=== PATIENT | male | born 1935 | race Caucasian/White ===

== ENCOUNTER 2018-02-19 09:55 | Emergency (ER) | payer MEDICARE ==
[~2018-02-19] VITALS: Ht 193 cm; Wt 82.0 kg
[~2018-02-19 09:55] MED LIST: ASPIRIN325 MG PO; COUMADIN1 MG PO; COUMADIN3 MG PO; METOPROL TAR25 MG PO
[2018-02-19 09:58] VITALS: BP 105/70
[2018-02-19] MEDS ORDERED: COUMADIN3 MG PO (10:05)
[2018-02-19] MEDS ORDERED: DONEPEZIL5 MG PO (10:05)
== END 2018-02-19 10:30 | disposition home or self-care (01) ==
LOC: ED 09:55
PROC: 0HDQXZZ Extraction of Finger Nail, External Approach (ICD-10-PCS; principal; 2018-02-19)
DX: S61.101A Unspecified open wound of right thumb with damage to nail, initial encounter (principal); I10 Essential (primary) hypertension; W22.03XA Walked into furniture, initial encounter; Y92.009 Unspecified place in unspecified non-institutional (private) residence as the place of occurrence of the external cause; Z95.5 Presence of coronary angioplasty implant and graft

== ENCOUNTER 2019-06-06 17:01 | Emergency (ER) | payer MEDICARE ==
[~2019-06-06] VITALS: Ht 193 cm; Wt 72.7 kg
[~2019-06-06 17:01] MED LIST changes: +DONEPEZIL5 MG PO
[2019-06-06 18:06] LABS: HEMATOCRIT 38.9 % (39.0-50.0); HEMOGLOBIN 12.2 g/dl (14.0-18.0); IMMATURE GRANULOCYTES 0.4 % (0.0-5.0); MEAN CELL VOLUME 93.1 fL CALC (80.0-100.0); MEAN CORPUSCULAR HGB 29.2 pG CALC (26.0-32.0); MEAN CORPUSCULAR HGB CONC 31.4 g/L CALC (32.0-36.0); NEUT# 12.05 thou/uL (1.82-7.42); RED BLOOD COUNT 4.18 mill/uL (4.70-6.10); RED CELL DISTRI WIDTH 14.9 % (11.5-15.5)
[2019-06-06 18:26] LABS: ALKALINE PHOSPHATASE 76 u/l (38-126); BILIRUBIN, TOTAL 0.7 mg/dL (0.0-1.4); BUN 23 mg/dL (8-23); BUN/CREATININE RATIO 28 (12-20 (CALC)); CHLORIDE 105 mmol/l (95-108); CREATININE 0.9 mg/dL (0.7-1.3); GFR > 60 ML/MIN (>=60 (CALC)); GFR FOR AFR.AMER. > 60 ML/MIN (>=60 (CALC)); POTASSIUM 4.6 mmol/l (3.5-5.1); SODIUM 141 mmol/l (137-146); TOTAL PROTEIN 7.4 g/dL (6.3-8.2)
[2019-06-06 18:28] LABS: ANION GAP 21 (6-22 (CALC)); CARBON DIOXIDE 20 mmol/l (22-30); SGOT/AST 42 u/l (19-48)
[2019-06-06] MEDS ORDERED: EZETIMIBE10 MG PO (18:57)
[2019-06-06 19:30] LABS: MYOGLOBIN 37 ng/mL (0 - 121)
[2019-06-06 21:20] VITALS: BP 124/78
== END 2019-06-06 21:45 | disposition left against medical advice (07) ==
LOC: ED 17:01 → ED-I 20:40 → ED 21:45
PROVIDERS: Emergency Medicine; Family Medicine
DX: R55 Syncope and collapse (principal); I10 Essential (primary) hypertension; Z95.5 Presence of coronary angioplasty implant and graft; Z91.19 Patient's noncompliance with other medical treatment and regimen

== ENCOUNTER 2019-07-05 14:40 | Inpatient (IN) | payer MEDICARE ==
[2019-07-05] VITALS (10 sets, daily range): BP systolic 102–134; BP diastolic 55–82
[~2019-07-05] VITALS: Ht 195.6 cm; Wt 66.3 kg
[~2019-07-05 14:40] MED LIST changes: +EZETIMIBE10 MG PO
--- NOTE | 2019-07-05 15:06 | NUR ---
PT TO ROOM VIA EMS. PT FELL 2 DAYS AGO AND HAS BED RIDDEN. PT HAS BEEN IN OWN FECES AND URINE FOR A WHILE DUE TO SKIN ISSUES ( PHOTOGRAPHED). PT IS AOX1- NORM FOR PT ACCORDING TO EMS. PT HAS NO COMPLAINTS TO STAFF. PT'S DIRTY CLOTHES WERE REMOVED AND PERITINEAL AREA CLEANED.
[2019-07-05 15:40] LABS: HEMATOCRIT 42.1 % (39.0-50.0); HEMOGLOBIN 13.2 g/dl (14.0-18.0); IMMATURE GRANULOCYTES 0.5 % (0.0-5.0); MEAN CELL VOLUME 94.8 fL CALC (80.0-100.0); MEAN CORPUSCULAR HGB 29.7 pG CALC (26.0-32.0); MEAN CORPUSCULAR HGB CONC 31.4 g/L CALC (32.0-36.0); NEUT# 20.89 thou/uL (1.82-7.42); RED BLOOD COUNT 4.44 mill/uL (4.70-6.10); RED CELL DISTRI WIDTH 14.8 % (11.5-15.5)
[2019-07-05 15:40] LABS: URINE BLOOD DIPSTICK NEGATIVE (NEGATIVE); URINE COLOR YELLOW; URINE GLUCOSE - DIPSTICK NEGATIVE (NEGATIVE); URINE KETONE 15 mg/dL (NEGATIVE); URINE LEUK ESTERASE NEGATIVE (NEGATIVE); URINE NITRITE - DIPSTICK NEGATIVE (Negative); URINE PROTEIN - DIPSTICK TRACE mg/dL (NEG-TRACE); URINE SPECIFIC GRAVITY 1.025
[2019-07-05 15:53] LABS: URINE BILIRUBIN - DIPSTICK SMALL (NEGATIVE)
--- NOTE | 2019-07-05 16:06 | NUR ---
PT RESTING ON STRETCHER, IV'S PATENT WITH MEDICATIONS RUNNING. NO COMPLAINT STATED AT THIS TIME.
[2019-07-05 16:07] LABS: ANION GAP 20 (6-22 (CALC)); BUN 28 mg/dL (8-23); BUN/CREATININE RATIO 43 (12-20 (CALC)); CARBON DIOXIDE 18 mmol/l (22-30); CHLORIDE 106 mmol/l (95-108); CPK 33 u/l (52-200); CREATININE 0.7 mg/dL (0.7-1.3); GFR > 60 ML/MIN (>=60 (CALC)); GFR FOR AFR.AMER. > 60 ML/MIN (>=60 (CALC)); POTASSIUM 4.7 mmol/l (3.5-5.1); SGOT/AST 23 u/l (19-48); SODIUM 139 mmol/l (137-146); TOTAL PROTEIN 6.7 g/dL (6.3-8.2)
[2019-07-05 16:08] LABS: ALBUMIN 3.1 g/dL (3.2-5.0); ALKALINE PHOSPHATASE 116 u/l (38-126); BILIRUBIN, TOTAL 2.2 mg/dL (0.0-1.4)
[2019-07-05 16:26] LABS: INTERNATIONAL NORMALIZED RATIO 1.2 RATIO (0.7-1.3); PROTHROMBIN TIME 12.6 SECONDS (9.0-12.5)
--- NOTE | 2019-07-05 16:57 | NUR ---
PHARMACY AT BEDSIDE.
--- NOTE | 2019-07-05 17:42 | NUR ---
Admission Note Report Given to: KAT ESTRADA Transported by: Wheelchair X Stretcher Transported with: X Nurse Transporter X Patent IV X O2 X Reclaimer TRANSPORTED TO ICU 7 WITHOUT INCIDENT
--- NOTE | 2019-07-05 17:45 | NUR ---
PT ARRIVED FROM ER TO ICU7 BY STRETCHER WITH TELE & O2 & IVF/ CARDIZEM/ VANCO RUNNING. RT @BEDSIDE TO FIND GOOD O2 READING. PT ON 3L NC/ TELE/ BP/ PULSE OX. PT IS A&O TO NAME & & IN [place] BUT DOES NOT KNOW WHERE HE IS IN [place] (HOSPITAL) NOT TIME/DATE/YEAR. PT CONFUSED STATING HE IS GOING TO WALK HOME. CALLED FOR A SITTER D/T PT CONSTANTLY PULLING AT WIRES & CATH BOUCHER & REMOVING NC.
--- NOTE | 2019-07-05 17:50 | NUR ---
PT GIVEN BED BATH TO CLEAN UP AFTER FECES STUCK ALL OVER PT, INCLUDING FACE/MOUTH. REORIENTING PT FREQUENTLY.
--- NOTE | 2019-07-05 18:00 | NUR ---
SITTER @BEDSIDE TO REORIENT PT & PREVENT HIM FROM PULLING OUT TUBES/IVS OR PULLING OFF MEDICAL EQUIPMENT.
--- NOTE | 2019-07-05 18:26 | NUR ---
LAB @BEDSIDE FOR DRAW.
--- NOTE | 2019-07-05 18:26 | NUR ---
ANOTHER RN CALLED AT HOME BC PT KEEPS ASKING FOR ERMA/. SHE STATES SHE WILL COME UP TOMORROW. STATES HER 35 YO GRANDSON IS LIVING OUT BACK TO HELP TAKE CARE OF THEM; GRANDSON HELPED PT BACK TO HIS CHAIR 2 DAYS AGO BUT DOESNT KNOW ANY DETAILS. STATES PTS DEMETIA HAS BEEN GETTING WORSE & NEEDS HELP. STATES PT WAS LEFT SITTING IN HIS CHAIR FROM [place] UNTIL PT WAS GETTING MORE CONFUSED AND REFUSED TO GET OUT OF CHAIR SO THEY CALLED 911.
--- NOTE | 2019-07-05 18:32 | NUR ---
MEAL REQUESTED FROM [facility] FOR PT.
--- NOTE | 2019-07-05 19:00 | NUR ---
REPORT RECEIVED FROM NATALIE CHURCH. PT SITTING UP IN BED; ALERT AND ORIENTED TO PERSON ONLY. FIDGETING AND PULLING ON PULSE OX MONITOR AND ASKING FOR TUBING TO BE REMOVED. PT REORIENTED TO PLACE AND EDUCATED ON INDICATION OF ALL ATTACHMENTS. SITTER AT BEDSIDE. PT DENIES PAIN, BUT STATES HE HAS A SORE BACK. RESPIRATIONS EVEN AND UNLABORED ON OXYGEN 3L VIA NC; 94% SPO2. CARDIZEM DRIP INFUSING AT 15MG/HR; NORMAL SALINE AT KVO; VANCO COMPLETED. PT DISINTRESTED IN DISCUSSING PLAN OF CARE. REPEATEDLY ASKING WHERE HIS IS AND MAKING RANDOM COMMENTS UNRELATED TO CONVERSATION. SAFETY MEASURES IN PLACE. CALL LIGHT WITHIN REACH.
--- NOTE | 2019-07-05 20:22 | NUR ---
ASSESSMENT COMPLETED; LUNG SOUNDS ARE COURSE TO LEFT SIDE; DIMINISHED ON RIGHT; PT APPEARS EMACIATED AND PALE; SKIN COOL DRY. PERRLA. ORAL MUCOSA IS DRY WITH WHITE PATCHES TO TONGUE AND ROOF OF MOUTH. WEAK PULSES. 12F BOUCHER CATHETER DRAINING CLEAR YELLOW URINE. SCROTUM DISOLORED WITH OPEN AREA IN FOLD. BILATERAL FEET IN POOR CONDITION WITH DRIED SCALY SKIN AND UNKEPT TOE NAILS. IV SITE TO LW APPEARS HEALTHY AND FLUIDS INFUSING WELL; IV SITE TO RW LEAKING; DRESSING REPLACED NOW CDI AND SALINE LOCKED. PT OFFERED COLD WATER; DECLINED. WILL CONTINUE TO MONITOR.
--- NOTE | 2019-07-05 21:46 | NUR ---
CARDIZEM DRIP TITRATED DOWN TO 10 MG/HR FOR UNSUSTAINED LOW BLOOD PRESSURE; HEART RATE IN THE 90S-110S. KEVIN EASON APPLIED. NIH ASSESSMENT COMPLETED; SCORE OF 4.
[2019-07-06] VITALS (22 sets, daily range): BP systolic 91–116; BP diastolic 53–64
--- NOTE | 2019-07-06 | NUR ---
PT ASLEEP NOW WITH NO SIGNS OF DISTRESS. REPSIRATIONS EVEN AND UNLABORED ON ROOM AIR. URINE NOW APPEARS DARK YELLOW AND CLOUDY. VSS. CARDIZEM REMAINS AT 10 MG/HR. SITTER AT BEDSIDE.
--- NOTE | 2019-07-06 01:31 | NUR ---
TEMPERATURE 96.0 AND PT FEELS COOL AND DRY; WARM BLANKET PROVIDED. NEW BAG OF CARDIZEM ADMINSITERED AND INFUSING WITHOUT DIFFICULTY. PT IS AFIB ON TELEMETRY WITH HR 90S-110S. SAFETY MEASURES IN PLACE. CALL LIGHT WITHIN REACH.
--- NOTE | 2019-07-06 05:02 | NUR ---
LAB AT BEDSIDE. TEMPERATURE UP TO 96.9. PT RESTING WITH EYES CLOSED; APPEARS RELAXED. NOT ATTEMPTING TO REMOVE EQUIPMENT. HEART RATE HAS INCREASED TEMPORARILY INTO THE 160'S WHILE AT REST AND RETURNS TO THE 80S-110S. 100% SPO2 ON 3L OXYGEN. NO REQUESTS OR CONCERNS FROM PT AT THIS TIME.
[2019-07-06 05:21] LABS: IMMATURE GRANULOCYTES 0.5 % (0.0-5.0); MEAN CELL VOLUME 91.8 fL CALC (80.0-100.0); MEAN CORPUSCULAR HGB 29.9 pG CALC (26.0-32.0); MEAN CORPUSCULAR HGB CONC 32.5 g/L CALC (32.0-36.0); NEUT# 17.79 thou/uL (1.82-7.42); RED BLOOD COUNT 3.55 mill/uL (4.70-6.10); RED CELL DISTRI WIDTH 14.8 % (11.5-15.5)
[2019-07-06 05:22] LABS: HEMATOCRIT 32.6 % (39.0-50.0); HEMOGLOBIN 10.6 g/dl (14.0-18.0)
[2019-07-06 05:34] LABS: ALKALINE PHOSPHATASE 80 u/l (38-126); BUN 26 mg/dL (8-23); BUN/CREATININE RATIO 41 (12-20 (CALC)); CHLORIDE 110 mmol/l (95-108); CREATININE 0.6 mg/dL (0.7-1.3); GFR > 60 ML/MIN (>=60 (CALC)); GFR FOR AFR.AMER. > 60 ML/MIN (>=60 (CALC)); SGOT/AST 12 u/l (19-48); SODIUM 140 mmol/l (137-146)
[2019-07-06 05:44] LABS: ALBUMIN 2.3 g/dL (3.2-5.0); ANION GAP 9 (6-22 (CALC)); BILIRUBIN, TOTAL 1.2 mg/dL (0.0-1.4); CARBON DIOXIDE 24 mmol/l (22-30); POTASSIUM 3.4 mmol/l (3.5-5.1); TOTAL PROTEIN 5.2 g/dL (6.3-8.2)
--- NOTE | 2019-07-06 06:08 | NUR ---
RADIOLOGY AT BEDSIDE FOR 1V CXR.
--- NOTE | 2019-07-06 06:30 | NUR ---
PT HAD ONLY 200ML OF DARK YELLOW CLOUDY URINE EMPTIED FROM BOUCHER. NOTED TO HAVE LARGE INCONTINENT VOID. LINENS CHANGED, PARTIAL BED BATH GIVEN, AND BOUCHER REPLACED WITH 16F 10CC BALLOON. PT TOLERATED WELL.
--- NOTE | 2019-07-06 06:50 | NUR ---
REPORT RECVD FROM NATALIE REA @START OF SHIFT.
--- NOTE | 2019-07-06 07:06 | NUR ---
PT TALKING WITH STAFF; LIKES TO TALK ABOUT HIS SERVICE IN A SUBMARINE. PT A&O TO NAME & ONLY. DOES NOT KNOW HOSPITAL OR YEAR OR AGE. PT ASKED FOR APPLE JUICE BC HIS THROAT WAS DRY. PT AWARE WE WILL GIVE HIM FOOD & DRINK IF ASKS FOR IT. LUNG SOUNDS IMPORVED FROM YESTERDAY. SITTER @BEDSIDE TO PREVENT PT FROM PULLING OUT LINES/MONITOR.
--- NOTE | 2019-07-06 07:19 | NUR ---
PT SITTING UP IN BED, SITTER FEEDING PT BREAKFAST.
--- NOTE | 2019-07-06 09:05 | NUR ---
LEONARDO MAJOR, @BEDSIDE ASSESSING PT. NINO AFSHINER PLACED ON PT D/T TYMP TEMP LOWERING TO 95.9. UNABLE TO LOCATE BLANKETS FOR NINO ANGELINAGGER, GOMEZ MELÉNDEZ SUGGESTED LAYERING BLANKETS AROUND HOSE. PT STATES WE "JUST NEED TO LOWER THE A/C". A/C LOW ROOM WILL ALLOW.
--- NOTE | 2019-07-06 09:55 | NUR ---
#20 RW LEAKING, IV D/C, DRESSING APPLIED, TIP INTACT. NEW IV ESTABLISHED TO LAC; LR INFUSING AT 100ML/HR + ABX. WILL CONTINUE TO MONITOR.
--- NOTE | 2019-07-06 10:56 | NUR ---
JAREN BE, CALLED TO INFORM OF PTS & GRANDSON @BEDSIDE TO SEE IF WE CAN HELP PT/FAMILY AT HOME WITH ANY SERVICES. HAILE "WILL BE HERE IN A WHILE".
--- NOTE | 2019-07-06 10:58 | NUR ---
& GRANDSON @BEDSIDE. GRANDSON STATES HAS ALZHEIMERS AND DOESNT REMEMBER ANYTHING. GRANDSON STATES THE LAST TIME HE SAY THE PT WAS Monday06/30/19 WALKING AROUND THE YARD; HE DENIES KNOWING ANYTHING ABOUT A FALL; STATES HE STOPPED BY & FOUND PT IN BED YESTERDAY. GRANDSON AT BEDSIDE ON PERSONAL CELL SINCE ARRIVAL. JAREN BE, UPDATED.
--- NOTE | 2019-07-06 11:02 | NUR ---
PHARMACY @BEDSIDE TO DISCUSS HOME MEDICATIONS.
--- NOTE | 2019-07-06 11:19 | NUR ---
FAMILY LEFT ICU. PT ROLLED TO LEFT SIDE STATING HE FELT UNCOMFORTABLE. PT MEDICATED FOR UNCOMFORTABLE PAIN; PLACED FOLDED BLANKET BETWEEN LEGS TO ALEIVIATE PRESSURE ON TESTICLES. BARRIER CREAM APPLIED TO GROIN AREA WITH EVERY TURN. REQUESTED A COUGH EXPECTORANT FROM LEOANRDO MAJOR. AWAITING NEW ORDERS.
--- NOTE | 2019-07-06 11:40 | NUR ---
DR CARRERA & PEDRITO PATTERSON @BEDSIDE FOR EVAL/ASSESSMENT.
--- NOTE | 2019-07-06 11:43 | NUR ---
PT REQUEST TO HOLD LUNCH SO HE CAN REST AFTER PAIN MEDICATIONS. PT ALSO REQUEST WE REMOVE THE PULSE OX ON HIS LEFT HAND BC IT "WAS MAKING MAKING HIM UNCOMFORTABLE". PULSE OX MOVED TO RIGHT HAND.
--- NOTE | 2019-07-06 12:17 | NUR ---
LAB @BEDSIDE FOR LA DRAW.
--- NOTE | 2019-07-06 13:15 | NUR ---
CALLED PHARMACY FOR COUGH MED NOT IN ICU PYXIS.
--- NOTE | 2019-07-06 13:19 | NUR ---
PTS CONFUSION INCREASING. PT REPEATEDLY TRYING TO "TAKE OFF HIS WATCH" WHICH IS ACTUALLY AN IV. PT THROWING LEG OVER SIDE OF BED, STATING HE WANTS TO GO FIND NATALIE (WITH AN I). PT TRYING TO REMOVE HIS PULSE OX BC "HE DOESNT NEED IT". SITTER REMAINS AT BEDSIDE. PT APPEARS DROWSY. WILL CONTINUE TO MONITOR.
--- NOTE | 2019-07-06 13:34 | NUR ---
NINO DOBSON LOWERED TO LOW D/T TYMP TEMP OF 99.4.
--- NOTE | 2019-07-06 13:40 | NUR ---
PT STILL APPEARS TO BE FIGHTING SLEEP, CONFUSED. MEDICATED FOR COUGH. VSS WITH CARDIZEM @2. DENIES PAIN AT THIS TIME. PTS SPEECH IS SLURRED BUT DOES NOT HAVE ANY TEETH. SITTER REMAINS @BEDSIDE TO REDIRECT/REORIENT PT.
--- NOTE | 2019-07-06 14:08 | NUR ---
200CC DARK YELLOW URINE DRAINED FROM CATH BOUCHER BAG, BELOW BED. BLADDER SCANNER SHOWS 0 URINE RETENTION.
--- NOTE | 2019-07-06 15:13 | NUR ---
PT SLEEPING IN BED, NO S/S OF DISTRESS. SITTER @BEDSIDE. VSS. WILL CONTINUE TO MONITOR.
--- NOTE | 2019-07-06 15:30 | NUR ---
PT WOKE UP FROM SLEEP, CONFUSED/TEARFUL, THEN WENT BACK TO SLEEP.
--- NOTE | 2019-07-06 16:00 | NUR ---
UNABLE TO PRINT OUT TELE STRIP D/T PRINTER NOT WORKING
--- NOTE | 2019-07-06 16:24 | NUR ---
PER HOUSE SUP, NO NYSTATIN AVAILABLE UNTIL PHARMACY REOPENS TOMOROROW AM.
--- NOTE | 2019-07-06 17:14 | NUR ---
PT REMAINS SLEEPING. DINNER PLACED IN ROOM UNTIL PT AWAKENS. SITTER REMAINS @BEDSIDE. VSS. WILL CONTINUE TO MONITOR.
--- NOTE | 2019-07-06 19:00 | NUR ---
PT RESTING IN BED WITH EYES CLOSED. O2 N/C ON AT 3L. B/P 92/61, HR 90'S. CARDIZEM GTT DECREASED FROM 10MG/HR TO 5 MG/HR. MONITOR AFIB HR 80 TO LOW 100'S WITH PVC NOTED. IV SITE PATENT NO REDNESS OR SWELLING AT IV SITES. LR AT 100CC/HR. BEAR HUGGER ON PT. TEMP 96.1. SKIN WARM AND DRY. WILL CONTINUE TO CLOSELY MONITOR . SITTER AT BEDSIDE. FREQUENT ROUNDS MADE. CALL BEJARANO WITHIN REACH.
--- NOTE | 2019-07-06 19:50 | NUR ---
PT RESTING IN BED. SITTER AT BEDSIDE. PT REMAINS CONFUSED. ALERT TO NAME. RESP EVEN AND UNLABORED. O2 N/C ON AT 3L. O2 SAT 98%. LUNGS REVEAL DIMINISHED BREATH SOUNDS IN ALL LOBES. PT HAS A NONPRODUCTIVE COUGH. ABD SOFT AND NONDISTENDED WITH BOWEL SOUNDS PRESENT. NO LOWER EXT EDEMA NOTED. PEDAL PULSES PALPATED BILAT. KEVIN HOSE ON. SCROTUM AND BUTTOCKS ARE RED AND EXCORIATED. WOUND PRESENT ON LEFT HIP. SCROTAL EDEMA IS NOTED. TURNED AND REPOSITIONED IN BED FOR COMFORT. MONITOR READING AFIB HR 80-100'S WITH PVC'S. B/P 103/59. BEAR HUGGER ON. SKIN WARM AND DRY. OFFERS NO COMPLAITNS. IV CARDIZEM AT 5MG/HR. LR AT 100CC/HR NO REDNESS OR SWELLING AT IV SITES. BOUCHER IS PATENT DRAINING BRITTANY URINE. WILL CONTINUE TO CLOSELY MONITOR. FREQUENT ROUNDS MADE. CALL BEJARANO WITHIN REACH.
--- NOTE | 2019-07-06 21:12 | NUR ---
TOTAL BED BATH GIVEN. NYSTATIN POWDER TO SCROTUM AND GROINS. LINENS CHANGED. LOTION APPLIED AND BARRIER CREAM. PT PLEASANT AND COOPERATIVE WITH FULL BED BATH. RESP EVEN AND UNLABORED. PT FED DINNER TRY. PT DOES NOT TOLERATE LIQUIDS WELL. WILL PASS ON FOR POSSIBLE SWALLOW EVAL. PT DRANK ENSURE. TURNED AND REPOSITIONED FOR COMFORT. WILL CONTINUE TO CLOSELY MONITOR. SITTER AT BEDSIDE. PT DENIES ANY PAIN OR DISCOMFORT. CALL BEJARANO WITHIN REACH.
--- NOTE | 2019-07-06 22:00 | NUR ---
PT AWAKE RESTING IN BED RESTING ON HIS SIDE. PILLOWS UNDER BRAYAN PROMINENCES. IV SITES PATENT. PT DOES HAVE A NONPRODUCTIVE COUGH. O2 N/C ON AT 3L. MONITOR READING AFIB WITH PVC'S. RESP EVEN AND UNLABORED. NO DISTRESS NOTED. B/P 107/57. FREQUENT ROUNDS MADE. CALL BEJARANO WITHIN REACH.
--- NOTE | 2019-07-06 22:13 | NUR ---
PATIENT ASSISTED WITH EATING PUDDING AND A FEW SIPS OF ENSURE AND WATER.
--- NOTE | 2019-07-06 23:17 | NUR ---
PT AWAKE. MEDICATED WITH TUSSIONEX 5ML FOR NONPRODUCTIVE COUGH. CALL BEJARANO WITHIN REACH.
--- NOTE | 2019-07-06 23:45 | NUR ---
PT HAS PERSISTANT NONPRODUCTIVE COUGH. LUNGS REVEAL COARSE BREATH SOUNDS. PT DOES NOT HAVE ENOUGH STRENGTH TO COUGH UP SPUTUM. O2 SAT 85-86% ON O2 4L. PT IS A MOUTH BREATHER AND DUE TO PT BEING CONFUSED WILL NOT FOLLOW INSTRUCTION. ORAL SUCTIONED FOR SMALL AMT OF YELLOW PHLEMN. R.T. CALLED AND PT PLACED ON A SIMPLE FACE MASK. NO CHANGES IN O2 SAT DO PT PLACED ON A NONREBREATHER. NOW SAT 95-96% AFTER SUCTIONED AND NONREBREATHER. NO DISTRESS NOTED. RESP ARE LABORED FROM COUGHING. HR 120'S FROM COUGHING ALSO. TURNED AND REPOSITIONED FOR COMFORT. WILL CONTINUE TO CLOSELY MONITOR.
[2019-07-07] VITALS (33 sets, daily range): BP systolic 100–129; BP diastolic 57–88
--- NOTE | 2019-07-07 00:05 | NUR ---
TEMP 97.4. B/P 102/60, MONITOR AFIB 108 WITH PVC'S. RESTING IN BED WITH EYES CLOSED. NO DISTRESS NOTED. CARDIZEM GTT REMAINS AT 5MG/HR AND LR AT 100CC/HR. BOUCHER IS DRAINING BRITTANY URINE. PT REMAINS ON NONREBREATHER AND SATS 96-98%. NO DISTRESS NOTED. FREQUENT ROUNDS MADE. CALL BEJARANO WITHIN REACH.
--- NOTE | 2019-07-07 00:15 | NUR ---
B/P 102/60, AFIB HR 100-120. CARDIZEM GTT INCREASED TO 10MG/HR. IV SITE PATENT. RESP EVEN AND UNLABORED. O2 SAT 99% ON NONREBREATHER. WILL CONTINUE TO CLOSELY MONITOR. CALL BEJARANO WITHIN REACH.
--- NOTE | 2019-07-07 02:05 | NUR ---
PT RESTING IN BED WITH EYES CLOSED. RESP EVEN AND UNLABORED. PT REMAINS ON NONREBREATHER. O2 SAT 99%. NO DISTRESS NOTED. SKIN WARM AND DRY. B/P 118/61. MONITOR AFIB HR 90-120 WITH PVC'S NOTED. IV CARDIZEM REMAINS AT 10MG/HR AND LR AT 100CC/HR. BOUCHER IS PATENT DRAINING BRITTANY URINE. SITTERS REMAINS AT BESIDE. FREQUENT ROUNDS MADE. CALL BEJARANO WITHIN REACH.
--- NOTE | 2019-07-07 04:15 | NUR ---
B/P 108/71, AFIB HR 90-120. CARDIZEM GTT INCREASED TO 15MG/HR. O2 SAT 99% ON NONREBREATHER. LR AT 100CC/HR. RESP EVEN AND UNLABORED. PT SLEEPING. WILL CONTINUE TO CLOSELY MONITOR. CALL BEJARANO WITHIN REACH.
--- NOTE | 2019-07-07 05:01 | NUR ---
REPOSITIONED FOR COMFORT. PT REMAINS PLEASANTLY CONFUSED. TEMP 98.1. B/P 109/75. O2 SAT 99% ON NONREBREATHER. RESP EVEN AND UNLABORED. WAITING ON MORNING LAB RESULTS. PT DENIES ANY PAIN OR DISCOMFORT. BOUCHER IS PATENT AND DRAINED 450CC OF CLEAR BRITTANY URINE. CARDIZEM GTT REMAINS AT 15MG/HR. MONITOR READING AFIB HR 90-120 WITH PVC'S NOTED. SITTER REMAINS AT BEDSIDE. FREQUENT ROUNDS MADE. CALL BEJARANO WITHIN REACH.
[2019-07-07 05:27] LABS: HEMATOCRIT 32.4 % (39.0-50.0); HEMOGLOBIN 10.3 g/dl (14.0-18.0); IMMATURE GRANULOCYTES 0.4 % (0.0-5.0); MEAN CELL VOLUME 93.6 fL CALC (80.0-100.0); MEAN CORPUSCULAR HGB 29.8 pG CALC (26.0-32.0); MEAN CORPUSCULAR HGB CONC 31.8 g/L CALC (32.0-36.0); NEUT# 6.56 thou/uL (1.82-7.42); RED BLOOD COUNT 3.46 mill/uL (4.70-6.10); RED CELL DISTRI WIDTH 14.8 % (11.5-15.5)
[2019-07-07 05:44] LABS: ANION GAP 8 (6-22 (CALC)); BUN 22 mg/dL (8-23); BUN/CREATININE RATIO 34 (12-20 (CALC)); CARBON DIOXIDE 26 mmol/l (22-30); CHLORIDE 111 mmol/l (95-108); CREATININE 0.7 mg/dL (0.7-1.3); GFR > 60 ML/MIN (>=60 (CALC)); GFR FOR AFR.AMER. > 60 ML/MIN (>=60 (CALC)); POTASSIUM 3.6 mmol/l (3.5-5.1); SODIUM 141 mmol/l (137-146)
--- NOTE | 2019-07-07 06:50 | NUR ---
REPORT RECVD FROM NATALIE CORONA @START OF SHIFT.
--- NOTE | 2019-07-07 07:22 | NUR ---
RT @BEDSIDE TO TAKE PT OFF NRB, & PLACE ON HIGHFLOW CANNULA. SITTER @BEDSIDE ALSO TO PREVENT PT FROM TRYING TO CLIMB OUT OF BED AND REMOVE MONITORING DEVICES & IV SITES. PT A&O TO NAME & ONLY.
--- NOTE | 2019-07-07 07:26 | NUR ---
O2 SAT ON NRB 99%. PLACED ON 8L HFNC. WILL MONITOR O2 SATS.
--- NOTE | 2019-07-07 07:35 | NUR ---
SITTER FEEDING PT BREAKFAST. PT TOLERATING FOOD/DRINK W/OUT DIFFICULTY. FIRE FIGHTER AIRPORT EXPRESSED CONCERNS; WILL DISCUSS SWALLOW STUDY WITH MD DURING ROUNDS. SPUTUM SAMPLE COLLECTED FOR CULTURE.
--- NOTE | 2019-07-07 08:29 | NUR ---
PHARMACY LOOKING FOR DR CARRERA FOR GRAM NEGATIVE COCCOBACILLIA IN BLOOD CULTURE.
--- NOTE | 2019-07-07 08:41 | NUR ---
PRELIMINARY CULTURE RESULTS CALLED TO @[phone]. 2 BOTTLES GROWING GRAM (-) COCCOBACCLI. THE PATIENT IS CURRENTLY ON LEVOFLOXACIN 750MG IV DAILY. NO NEW ORDERS AT THIS TIME.
--- NOTE | 2019-07-07 09:20 | NUR ---
LEONARDO MAJOR, @BEDSIDE FOR ASSESSMENT.
--- NOTE | 2019-07-07 09:38 | NUR ---
PT TRANSFERED TO DIFFERENT BED, IN SAME ROOM, TO BE ABLE TO OBTAIN WEIGHT DAILY. PT REMAINS ON MONITORS, 50% HUMIDIFIED HIGH FLOW NC, & NINO DOBSON ON LOW. VSS. IV CARDIZEM & LR & LEVAQUIN RUNNING INTO #20 LW & #20 LAC. NO S/S OF DISTRESS. PT FREINDLY WITH STAFF. SITTER REMAINS @BEDSIDE. CALLBELL W/IN REACH. PT WATCHING TV.
--- NOTE | 2019-07-07 10:19 | NUR ---
DECREASED HFNC TO 7L
--- NOTE | 2019-07-07 10:20 | NUR ---
RT TURNED HIGHFLOW DOWN FROM 8-7
--- NOTE | 2019-07-07 10:45 | NUR ---
& GRANDSON @BEDSIDE WITH PT. ALEKSANDRA REMAIN @BEDSIDE ALSO.
--- NOTE | 2019-07-07 11:13 | NUR ---
PTS GRANDSON INCHING OUT THE DOOR. FOLLOWING. PT CALLING OUT FOR NATALIE. DR CARRERA & PEDRITO PATTERSON @BEDSIDE WITH FAMILY/PT. FAMILY UPDATED ON TESTS/PROCEDURES & POC. FAMILY WOULD LIKE TO KEEP FAMILY FULL CODE. MD AWARE OF LIMITED OUTPUT, & HR/RHYTHM/BP. MD STATES TO RESTART CARDIZEM & KEEP HOB @30 DEGREES.
--- NOTE | 2019-07-07 12:22 | NUR ---
PT SLEEPING IN BED, NO S/S OF DISTRESS. BREATHING IS EVEN/UNLABORED. HR IN 90-100'S. CALLBELL W/IN REACH. SITTER @BEDSIDE. WILL CONTINUE TO MONITOR CLOSELY/FREQUENTLY.
--- NOTE | 2019-07-07 12:55 | NUR ---
D/T CONCERNS ABOUT PT & BEING ABLE TO CARE FOR THEMSELVES AT HOME, DESPITE FAMILY BEING CLOSE BY, A REPORT WAS FILED WITH [place] [facility]; THERE ARE CONCERNS FOR VULNERABLE ADULT VICTIMS. GOMEZ MELÉNDEZ AWARE.
--- NOTE | 2019-07-07 13:00 | NUR ---
THIS RN TOOK OVER SITTER D/T LOW CENSUS. PT AWAKE & ALERT BUT CONFUSED. PT REMAINS AFIB ON TELE, ON HIGHFLOW HUMIDIFIED NC, BREATHING EVEN/UNLABORED. CONTINUE TO TURN PT PLACE PILLOWS UNDER PRESSURE POINTS. ONLY OCCASSIONAL LINE ASSIGNER COUGH SINCE MEDICATED THIS AM. BRITTANY URINE DRAINING TO CATH BOUCHER BAG BELOW BED. PT IS FREINDLY BUT DOES NOT FOLLOW DIRECTIONS. CELLBELL ON LAP, PT IS WATCHING TV. NO S/S OF DISTRESS. CARDIZEM RUNNING AT 5, LR @100. WILL CONTINUE TO MONITOR CLOSELY.
--- NOTE | 2019-07-07 14:30 | NUR ---
PT YELLS OUT FOR STAFF IF I/SITTER DONT RESPOND TO HIM QUICKLY. THIS RN SITS @BEDSIDE WITH PT BUT IF I DONT ANSWER, HE GETS PANICKED AND TRIES TO CLIMB OUT OF BED, ONCE SPOKEN TO, PT CALMS DOWN. PT IS NOT AGGRESSIVE.
--- NOTE | 2019-07-07 16:43 | NUR ---
PT VERY TALKATIVE WITH STAFF; CONFUSED; CHANGING SUBJECTS QUICKLY; REPEATING WHAT HE HEARS ON TV. BUT DOESNT ANSWER QUESTIONS APPROPRIATELY. PT OFTEN CIRCLES BACK TO TOPICS HE REMEMBERS LIKE [employer]. PT NOW SPEAKING OF HOW THE NINO ALFAROGGER SOUNDS, ONLY HE THINKS ITS A PLANE THAT'S GOING TO CRASH AND I SHOULD BE TRYING TO GET AHOLD OF SOMEONE ON THE RADIO. SOMETIMES ITS HARD TO REORIENT PT, SOMETIMES HE REORIENTS EASILY. PT CONTINUES WITH FREQUENT COUGH, MEDICATED FOR SAME.
--- NOTE | 2019-07-07 18:00 | NUR ---
PT SLEEPING IN BED, APPEARS RESTFUL. PT SLEEPS WITH EYES PARTLY OPEN. VSS. WILL CONTINUE TO MONITOR.
--- NOTE | 2019-07-07 20:05 | NUR ---
PT AWAKE RESTING IN BED. PT IS PLEASANTLY CONFUSED. ALERT TO NAME ONLY. FREQUENT REDIRECTION IS NEEDED. RESP EVEN AND UNLABORED. HIGH SHARI N/C ON AT 7L. O2 SAT 99%. SKIN WARM AND DRY. TEMP 97.9 WITH BEAR HUGGER ON. PT REMAINS NPO WITH HOB AT 45 DEGREES. PT TURNED AND REPOSITIONED FOR COMFORT. SILVESTRE CARE GIVEN. BOUCHER IS PATENT DRAINING CLEAR BRITTANY URINE. IV SITE PATENT IN LEFT WRIST WITH D5 1/2NSS AT 100CC/HR AND CARDIZEM GTT AT 10MG/HR. WHEN SHIFT REPORT RECEIVED CARDIZEM WAS REPORTED AT 10MG/HR AND REAINS THERE. MONITOR AFIB HR 90-120'S WITH PVC'S NOTED. LUNGS REVEAL COARSE BREATH SOUNDS WITH DIMINISHED IN MID TO LOWE LOBES. ABD SOFT AND NONDISTENDED WITH BOWEL SOUNDS PRESENT. NO LOWER EXT EDEMA NOTED. PEDAL PULSES PALPATED BILAT. KEVIN HOSE ON. HEEL PROTECTORS ARE ON. 4X4 CUSHION DRESSING APPLIED TO COCCYX. SCROTUM IS EDEMATOUS. NYSTATIN CREAM AND POWDER APPLIED AFTER SILVESTRE CARE. WOUND ON HIP CLEAN AND DRY WITH NO DRAINAGE, MANAGER OF CLINICAL. PT HAS A NONPRODUCTIVE COUGH. SUCTION AT BEDSIDE FOR PRN SUCTIONING. REMAINS NPO. DENIES ANY PAIN OR DISCOMFORT WITH REPOSITIONING. SITTER ORDERED TO REMAIN AT BEDSIDE WITH PT, THIS STEAMING CABINET TENDER WITH PT AT BEDSIDE AT ALL TIMES FOR PTS SAFETY. MOUTH CARE GIVEN TO PT. WILL CONTINUE TO CLOSELY MONITOR PT FROM BEDSIDE.
--- NOTE | 2019-07-07 22:06 | NUR ---
PT RESTING IN BED. NOW SUPINE WITH HEEL PROTECTORS ON AND PILLOW UNDER BRAYAN PROMINENCES. RESP EVEN AND UNLABOERD. O2 SAT 96% ON HIGH SHARI N/C. RESP EVEN AND UNLABORED. MONITOR AFIB WITH PVC'S HR 90-120. CARDIZEM GTT REMAINS AT 10MG/HR AND D5 1/2NSS AT 1O0CC/HR. NO DISTRESS NOTED. THIS BUNDLE COLLECTOR REMAINS AT BEDSIDE FOR CONTINIOUS MONITORING.
[2019-07-08] VITALS (22 sets, daily range): BP systolic 104–144; BP diastolic 58–81
--- NOTE | 2019-07-08 00:15 | NUR ---
PT WOKE. PT REMAINS PLEASANTLY CONFUSED. RESP EVEN AND UNLABORED. TEMP 96.5 O2 SAT 96%. B/P 118/74. MONITOR READING AFIB HR 90-120 WITH PVC. BOUCHER IS PATENT. IV CARDIZEM GTT REMAINS AT 10MG/HR. IV D5 1/2NSS AT 100CC/HR INFUSING INTO LEFT WRIST NO REDNESS OR SWELLING AT SITE. PT TURNED AND REPOSITIONED FOR COMFORT. WILL PILLOS UNDER BRAYAN PROMINENCES. PT DENIES ANY PAIN OR DISCOMFORT. HOB IS ELEVATED AND PT REMAINS NPO. PTS MOUTH MOISTENDED. THIS SQUARE SHEAR OPERATOR REMAINS WITH PT AT BEDSIDE FOR PTS SAFETY.
--- NOTE | 2019-07-08 01:20 | NUR ---
PT ORAL SUCTIONED FOR SMALL AMT OF MUCOUS. PT HAS A NONPRODUCTIVE COUGH. NO DISTRESS NOTED. RESP EVEN AND UNLABORED. SAT 98%.
--- NOTE | 2019-07-08 02:10 | NUR ---
b/p 121/70. o2 sat 98%. PT AWAKE WATCHING T.V. REMAINS CONFUSED. REDIRECTION NEEDED AT TIMES. DENIES ANY DISCOMFORT. MONITOR AFIB HR 80-110. CARDIZEM GTT REMAINS AT 10MG/HR. THIS ATOMIC FUEL ASSEMBLER REMAINS AT BEDSIDE FOR PTS SAFETY.
--- NOTE | 2019-07-08 04:07 | NUR ---
PT RESTING IN BED WITH EYES CLOSED. ASSESSMENT UNCHANGED. VSS. IV SITE PATENT. NO DISTRESS NOTED. THIS WIRE MACHINE OPERATOR REMAINS AT BEDSIDE FOR PTS SAFETY .
[2019-07-08 05:09] LABS: HEMATOCRIT 32.6 % (39.0-50.0); HEMOGLOBIN 10.2 g/dl (14.0-18.0); IMMATURE GRANULOCYTES 0.5 % (0.0-5.0); MEAN CELL VOLUME 94.8 fL CALC (80.0-100.0); MEAN CORPUSCULAR HGB 29.7 pG CALC (26.0-32.0); MEAN CORPUSCULAR HGB CONC 31.3 g/L CALC (32.0-36.0); NEUT# 7.49 thou/uL (1.82-7.42); RED BLOOD COUNT 3.44 mill/uL (4.70-6.10); RED CELL DISTRI WIDTH 14.9 % (11.5-15.5)
[2019-07-08 05:20] LABS: ANION GAP 8 (6-22 (CALC)); BUN 19 mg/dL (8-23); BUN/CREATININE RATIO 32 (12-20 (CALC)); CARBON DIOXIDE 26 mmol/l (22-30); CHLORIDE 111 mmol/l (95-108); CREATININE 0.6 mg/dL (0.7-1.3); GFR > 60 ML/MIN (>=60 (CALC)); GFR FOR AFR.AMER. > 60 ML/MIN (>=60 (CALC)); POTASSIUM 3.8 mmol/l (3.5-5.1); SODIUM 141 mmol/l (137-146)
--- NOTE | 2019-07-08 07:00 | NUR ---
PT RESTING IN BED AWAKE. PT IS ALERT AND ORIENTED TO SELF AND PLACE. PT IS UNSURE OF YEAR. SHIFT ASSESSMENT COMPLETED AT THIS TIME. IV PATENT X1. REMOVED IV TO LAC WITH CATH TIP INTACT. CALL LIGHT IN REACH. WILL CONTINUE TO MONITOR.
--- NOTE | 2019-07-08 08:30 | NUR ---
CLEANSED SCROTUM AND SILVESTRE AREA APPLIED NYSTATIN DIRECTED
--- NOTE | 2019-07-08 09:00 | NUR ---
SPEECH THERAPY AT BEDSIDE AT THIS TIME.
--- NOTE | 2019-07-08 09:29 | NUR ---
Pt is an 83 y.o. male referred for a ST evaluation d/t concerns w/aspiration. Pt presents as edontulous, with delayed swallow initiation and overt s/s of aspiration/penetration with thin liquids (1 PO bolus) via cup. Most recent CXR indicates significant RLL infiltration; pt presents with PMHX of chronic Emphysema exacerbation(s). RUG CLEANER HAND recommending continuation of NPO status at this time, with alternative means of nutrition recommended. RUG CLEANER HAND can f/u w/another Clinical Bedside Swallow Evaluation pending positive change in pt's status. DIET: NPO APMAC Score: 6
--- NOTE | 2019-07-08 10:02 | NUR ---
PT RESTING IN BED APPEARS TO BE SLEEPING. RESP ARE EVEN AND UNLABORED. NO DISTRESS NOTED. CALL LIGHT IN REACH. WILL CONTINUE TO MONITOR.
--- NOTE | 2019-07-08 10:09 | NUR ---
FAMILY AT BEDSIDE AT THIS TIME.
--- NOTE | 2019-07-08 11:58 | NUR ---
DR TUCKER AT BEDSIDE AT THIS TIME
--- NOTE | 2019-07-08 12:06 | NUR ---
MULTIPLE ATTEMPTS MADE TO CONTACT FAMILY TO DISCUSS PLAN OF CARE. UNABLE TO GET IN TOUCH WITH FAMILY AT THIS TIME.
--- NOTE | 2019-07-08 12:20 | NUR ---
PHONE NUMBER [phone] FOUND IN CASE MANAGEMENT NOTES CONTEACTED MAXI IBANEZ TO COME UP AND DISCUSS PLAN OF CARE WITH PROVIDER.
--- NOTE | 2019-07-08 12:50 | NUR ---
PEDRITO PATTERSON AT BEDSIDE TO DISCUSS PLAN OF CARE WITH MAXI IBANEZ
--- NOTE | 2019-07-08 13:40 | NUR ---
VERBAL CONSENT VIA PHONE OBTAINED FROM MAXI GARCIA FOR PEG TUBE PLACEMENT
--- NOTE | 2019-07-08 13:50 | NUR ---
DR DAWSON FROM [facility] AT BEDSIDE FOR CONSULT
--- NOTE | 2019-07-08 13:58 | NUR ---
CALLED [facility] AT SPOKE WITH [facility] REGARDING THIS PT. WAS GIVEN A CONFIRMATION NUMBER THAT IS [phone]. GAVE ROOM NUMBER AND WHERE THE PT IS LOCATED.
--- NOTE | 2019-07-08 14:00 | NUR ---
COMPLETE BED BATH GIVEN WITH LINEN CHANGE. NYSTATIN APPLIED ORDERED. AQUAPHOR APPLIED TO BILAT LOWER EXT ORDERED. PT TOLERATED WELL.
--- NOTE | 2019-07-08 14:20 | NUR ---
RADIOLOGY AT BEDSIDE TO COMPLETE ECHO AT THIS TIME
--- NOTE | 2019-07-08 15:15 | NUR ---
PT TO RADIOLOGY FOR BRAIN CT. VIA STRETCHER. TRANSFERRED TO STRETCHER X2 MAX ASSIST.
--- NOTE | 2019-07-08 15:38 | NUR ---
RETURNED FROM RADIOLOGY AND ASSITED BACK TO BED X2 MAX ASSIST
--- NOTE | 2019-07-08 15:53 | NUR ---
NINO DOBSON REAPPLIED FOR TEMP OF 96.6
--- NOTE | 2019-07-08 16:15 | NUR ---
FAMILY AT BEDSIDE. ENCOURAGED FAMILY TO STAY UNTIL AFTER 5 TO MEET WITH MD.
--- NOTE | 2019-07-08 16:50 | NUR ---
PEDRITO PATTERSON PRESENTLY SPEAKING WITH GRANDSON ABOUT UPCOMING SURGICAL PROCEDURE.
--- NOTE | 2019-07-08 17:20 | NUR ---
PT BEGINNING NOW TO DISTURB WIRES AND HAVE INCREASED CONFUSION STATING I THOUGHT I WAS GETTING OUT OF HERE. PT EASILY REORIENTS. WILL CONTINUE TO CLOSELY MONITOR.
--- NOTE | 2019-07-08 17:38 | NUR ---
PT WITH INCREASED CONFUSION AT THIS TIME. STATING HE WAS NOT SICK AND WHO PUT HIM IN HERE. PT CONTINUES TO REORIENT EASILY HOWEVER NEEDS FREQUENT REORIENTATION. THIS RETAIL SALES ASSOCIATE BILINGUAL AT BEDSIDE FOR PATIENT SAFETY AT THIS TIME.
--- NOTE | 2019-07-08 18:17 | NUR ---
pt becoming increasingly more agitated. and unable to reorient at this time. pt continuously pulling at wires. and asking about a flashlight.
--- NOTE | 2019-07-08 18:29 | NUR ---
phoned dr carranza for orders for increased agitation
--- NOTE | 2019-07-08 19:00 | NUR ---
all shift notes are to be this insurance writer.
--- NOTE | 2019-07-08 19:00 | NUR ---
awake. confused. attempting to get oob but is unsuccessful. security & rn @ bedside. o2 cont per nc. case monitor shows a fib pvcs. #20 lt wrist cardizem gtt infusing @ 10mghr, d51/2ns infusing @ 100cchr. remains npo. rodriguez cath in place. urine lt ines. pt is very unkept. requires total assist with all care. fall precautions cont. bed alarm activated.
--- NOTE | 2019-07-08 20:00 | NUR ---
hill rom rep here. air mattress applied. moved to icu8.
--- NOTE | 2019-07-08 20:30 | NUR ---
dr carranza notified of pts restlessness even after ativan administration. orders rec'd.
--- NOTE | 2019-07-08 20:45 | NUR ---
pt appears to be sleeping @ present.
--- NOTE | 2019-07-08 22:00 | NUR ---
eyes closed. no distress. youth nutritional monitor shows a fib pvcs hr 100.
[2019-07-09] VITALS (24 sets, daily range): BP systolic 104–147; BP diastolic 67–96
--- NOTE | 2019-07-09 00:01 | NUR ---
resting quietly. no apparent resp diff. o2 cont.
--- NOTE | 2019-07-09 03:00 | NUR ---
c/o being cold. temp 96.9. cyndi junior applied.
--- NOTE | 2019-07-09 04:00 | NUR ---
pt c/o being hot. temp 97.1. bear vernon removed.
--- NOTE | 2019-07-09 04:00 | NUR ---
remains awake & confused. no distrress. monitoring and evaluation advisor shows a fib pvcs.
--- NOTE | 2019-07-09 04:40 | NUR ---
lab here. blood drawn.
[2019-07-09 04:59] LABS: HEMATOCRIT 34.9 % (39.0-50.0); HEMOGLOBIN 10.8 g/dl (14.0-18.0); IMMATURE GRANULOCYTES 0.9 % (0.0-5.0); MEAN CELL VOLUME 94.1 fL CALC (80.0-100.0); MEAN CORPUSCULAR HGB 29.1 pG CALC (26.0-32.0); MEAN CORPUSCULAR HGB CONC 30.9 g/L CALC (32.0-36.0); NEUT# 11.64 thou/uL (1.82-7.42); RED BLOOD COUNT 3.71 mill/uL (4.70-6.10); RED CELL DISTRI WIDTH 14.9 % (11.5-15.5)
[2019-07-09 05:10] LABS: ANION GAP 12 (6-22 (CALC)); BUN 16 mg/dL (8-23); BUN/CREATININE RATIO 29 (12-20 (CALC)); CARBON DIOXIDE 22 mmol/l (22-30); CHLORIDE 111 mmol/l (95-108); CREATININE 0.6 mg/dL (0.7-1.3); GFR > 60 ML/MIN (>=60 (CALC)); GFR FOR AFR.AMER. > 60 ML/MIN (>=60 (CALC)); POTASSIUM 3.5 mmol/l (3.5-5.1); SODIUM 141 mmol/l (137-146)
--- NOTE | 2019-07-09 06:00 | NUR ---
remains awake. no resp distress. youth nutritional monitor shows a fib pvcs hr 110.
--- NOTE | 2019-07-09 07:00 | NUR ---
PT AGITATED AND CONFUSED. UNCOPERATIVE WITH ASSESSMENT. RESPONDS WHEN CALLED BY NAME HOWEVER DOES NOT ANSWER ANY QUESTIONS APPROPRIATELY. UNABLE TO FOLLOW SIMPLE COMMANDS TODAY. PT IS SOMEWHAT COMBATIVE TAKING OXYGEN OFF AND SWATTING AND SCRATCHING STAFF POSSIBLY UNINTENTIONAL. SHIFT ASSESSMENT COMPLETED AT THIS TIME. IV PATENT AT THIS TIME.CALL LIGHT IN REACH. BED ALARM IN PLACE FOR PATIENT SAFETY. WILL CONTINUE TO CLOSELY MONITOR.
--- NOTE | 2019-07-09 07:25 | NUR ---
ZYPREXA 2.5 GIVEN IM PER NOV. PT CONTINUES TO BE AGGRESSIVE AND AGITATED IN ROOM.
--- NOTE | 2019-07-09 08:30 | NUR ---
PT COTINUES TO BE AGITATED PULLING AT WIRES. REORIENTATION UNSUCCESSFUL REFUSES TO KEEP OXYGEN ON. CONSISTENTLY PULLING AT WIRES AND PICKING AT OBJECTS IN HAKEEM THAT ARE NOT THERE. WILL CONTINUE TO MONITOR.
--- NOTE | 2019-07-09 09:40 | NUR ---
DR TUCKER AT BEDSIDE AT THIS TIME
--- NOTE | 2019-07-09 10:05 | NUR ---
FAMILY AT BEDSIDE AT THIS TIME. PT APPEARS TO BE CONVERSING WITH FAMILY.
--- NOTE | 2019-07-09 10:40 | NUR ---
DR TUCKER SPOKE WITH FAMILY ABOUT POSSIBILITY OF HOSPICE. FAMILY AGREES TO NO J TUBE PLACEMENT AND AGREES TO HOSPICE CONSULT.
--- NOTE | 2019-07-09 10:44 | NUR ---
NOTIFIED JAYLA IN OR THAT PT WAS GOING TO HOSPICE CARE
--- NOTE | 2019-07-09 11:41 | NUR ---
REPOSITIONED PT IN BED. PT CONTINUES TO BE AGITATED AND SWAT STAFF AND SCRATCH. WILL CONTINUE TO CLOSELY MONITOR.
--- NOTE | 2019-07-09 12:40 | NUR ---
JUJU FROM HOSPICE CALLED REQUESTED GRANDSON'S NUMBER TO CALL AND SETUP TIME TO MEET TO DISCUSS PLAN OF CARE
--- NOTE | 2019-07-09 12:50 | NUR ---
PT CONTINUES WOTH INCREASED AGITATION AND UNABLE TO REORINET. DR TUCKER NOTIFIED. NEW ORDERS RECEIVED.
--- NOTE | 2019-07-09 13:33 | NUR ---
ORAL CARE ATTEMPTED PT BEGAN TO SWAT AT STAFF. WILL HOLD ORAL CARE AT THIS TIME AND TRY AT A LATER TIME
--- NOTE | 2019-07-09 14:02 | NUR ---
SUNDAR SISTER CALLED AND REQUESTED TO SPEAK TO PATIENT. SUNDAR WAS ABLE TO PROVIDE CODE. UPDATE PROVIDED TO INCLUDE HOSPICE REFERRAL.
--- NOTE | 2019-07-09 14:05 | NUR ---
KATIE FROM HOSPICE ON UNIT AT THIS TIME
--- NOTE | 2019-07-09 14:22 | NUR ---
CHRISTY GERMAN AT BEDSIDE WITH HOSPICE TO DISCUSS PLAN OF CARE.
--- NOTE | 2019-07-09 14:37 | NUR ---
IV DUE TO BE CHANGED TODAY. PT DUE TO DUE TO GO TO HOSPICE HOUSE TOMORROW. WILL HOLD OFF ON CHANGING IV DUE TO INCREASED AGITATION.
--- NOTE | 2019-07-09 15:20 | NUR ---
PT CONTINUES TO TALK ALOUD IN ROOM, PULL AT WIRES, AND HAVE AGITATION AND REACH UP WITH NOTHING THERE. PEDRITO PATTERSON NOTIFIED NEW ORDERS RECEIVED.
--- NOTE | 2019-07-09 16:30 | NUR ---
PT ALLOWED NURSES TO TURN AND PROVIDE ORAL CARE AT THIS TIME. PT TOLERATED WELL.
--- NOTE | 2019-07-09 16:46 | NUR ---
MULTIPLE FAMILY MEMBERS AT BEDSIDE AT THIS TIME.
--- NOTE | 2019-07-09 17:06 | NUR ---
KATIE RN FROM HOSPICE MEETING AND DISCUSSING HOSPICE CARE WITH FAMILY AT THIS TIME
--- NOTE | 2019-07-09 17:18 | NUR ---
DR TUCKER NOTIFIED THAT FAMILY AGREED TO HOSPCIE CARE AND DNR STATUS
--- NOTE | 2019-07-09 17:57 | NUR ---
ORAL CARE PROVIDED AT FAMILY REQUEST.
--- NOTE | 2019-07-09 19:00 | NUR ---
awake. remains confused. personnel monitor shows a fib pvcs hr 121. #20 lt wrist cardizem gtt infusing @ 10mghr, d51/2ns infusing @ 100cchr. remains npo. rodriguez cath in place. urine cloudy. requires total assist with all care. turned & repositioned. fall precautions & bed alarm cont.
--- NOTE | 2019-07-09 20:30 | NUR ---
restless & yelling out. ativan 1mg ivp slowly given.
--- NOTE | 2019-07-09 21:00 | NUR ---
eyes closed. quiet @ present.
[2019-07-10] VITALS (11 sets, daily range): BP systolic 104–139; BP diastolic 68–104
--- NOTE | 2019-07-10 00:01 | NUR ---
eyes closed. no distress. athletic monitor shows a fib pvcs hr 102.
--- NOTE | 2019-07-10 02:00 | NUR ---
resting quietly. resps even & unlabored. no apparent distress.
--- NOTE | 2019-07-10 04:00 | NUR ---
eyes closed. no distress. monitoring tech shows a fib pvcs hr 124.
--- NOTE | 2019-07-10 05:30 | NUR ---
rodriguez leaked. complete bed bath & linen change x2 assists. keenan well.
--- NOTE | 2019-07-10 07:30 | NUR ---
PT RESTING IN BED WITH EYES CLOSED. RESP ARE EVEN AND UNLABORED. UNABLE TO ASSESS ORIENTATION AT THIS TIME DUE TO PATIENT SLEEPING. PT IS A HOSPICE PATIENT AND RECEIVED ATIVAN ACCORDING TO PREVIOUS SHIFT. SHIFT ASSESSMENT COMPLETED. IV PATENT X1. CALL LIGHT IN REACH. BED ALARM IN PLACE FOR PATIENT SAFETY. WILL CONTINUE TO CLOSELY MONITOR.
--- NOTE | 2019-07-10 09:29 | NUR ---
LINDA'Yin RUIZ PER MD ORDER WHILE DR TUCKER AT BEDSIDE.
--- NOTE | 2019-07-10 10:37 | NUR ---
FAMILY AT BEDSIDE AT THIS TIME. UPDATED FAMILY ON PT STATUS.
--- NOTE | 2019-07-10 10:42 | NUR ---
JOSEPH WITH [facility] AT BEDSIDE AT THIS TIME.
--- NOTE | 2019-07-10 11:51 | NUR ---
DISHARGE INSTRUCTIONS TYPED AND GIVEN TO HOSPICE NURSE JOSEPH. PT CONTINUES TO REST IN. BEGINNING TO GET A BIT RESTLESS.
--- NOTE | 2019-07-10 12:40 | NUR ---
DARIENCOJAMES ON UNIT REPORT PROVIDED. PT TRANSFERRRED TO [facility]
--- NOTE | 2019-07-10 12:55 | NUR ---
Discharged in stable condition via Medical Transport to [facility] with [facility]. All belongings sent with pt.
--- NOTE | 2019-07-10 13:01 | NUR ---
I SPOKE WITH ILSA FROM [email or web address] @1258 PM. HE VERIFIED THAT THE AIR MATRESS FOR THIS PATIENT WILL BE PICKED UP AND THE CONFIRMATION NUMBER IS #[id number].
== END 2019-07-10 12:55 | disposition home health service (06) | DRG 867 ==
LOC: ED 14:40 → ED-I 16:34 → ED 16:47 → ICU 16:48
PROVIDERS: Family Medicine; Nurse Practitioner Family; ADMIT Internal Medicine; ATTEND Internal Medicine
PROC: 0T9B70Z Drainage of Bladder with Drainage Device, Via Natural or Artificial Opening (ICD-10-PCS; principal; 2019-07-06)
DX: A28.0 Pasteurellosis (principal); G93.41 Metabolic encephalopathy; E43 Unspecified severe protein-calorie malnutrition; R65.20 Severe sepsis without septic shock; J69.0 Pneumonitis due to inhalation of food and vomit; Z68.1 Body mass index [BMI] 19.9 or less, adult; I48.20 Chronic atrial fibrillation, unspecified; R64 Cachexia; F03.90 Unspecified dementia, unspecified severity, without behavioral disturbance, psychotic disturbance, mood disturbance, and anxiety; I11.0 Hypertensive heart disease with heart failure; I50.9 Heart failure, unspecified; J43.9 Emphysema, unspecified; R62.7 Adult failure to thrive; R09.02 Hypoxemia; R13.10 Dysphagia, unspecified; I25.10 Atherosclerotic heart disease of native coronary artery without angina pectoris; L89.152 Pressure ulcer of sacral region, stage 2; D64.9 Anemia, unspecified; E86.0 Dehydration; B36.8 Other specified superficial mycoses; B35.1 Tinea unguium; Z66 Do not resuscitate; Z51.5 Encounter for palliative care; Z95.5 Presence of coronary angioplasty implant and graft; Z95.1 Presence of aortocoronary bypass graft; Z79.01 Long term (current) use of anticoagulants
CPT/HCPCS: J1650; J2060; S0164; S0166